=== PATIENT | female | born 1995 | race Hispanic/Latino ===

== ENCOUNTER 2017-09-10 22:39 | Emergency (ER) | payer MEDICAID | END 2017-09-11 01:15 | disposition home or self-care (01) | LOC: EDH 22:39 | DX: I88.8 Other nonspecific lymphadenitis (principal) | CPT/HCPCS: 99281 ==

== ENCOUNTER 2019-12-01 11:37 | Inpatient (IN) | payer MEDICAID ==
[~2019-12-01] VITALS: Ht 160 cm; Wt 81.6 kg
[2019-12-02] MEDS ORDERED: PROMETHAZINE HCL 25 MG/ML 1ML AMPULE IM PRN (22:15)
[2019-12-02] MEDS ORDERED: MEPERIDINE-PF 50 MG/ML SYG IVP PRN (22:15)
[2019-12-02] MEDS ORDERED: LACTATED RINGERS 500 ML 500 ML IV PRN (22:15)
[2019-12-02] MEDS ORDERED: EPHEDRINE SULFATE 50 MG/ML AMPULE IVP PRN (22:15)
[2019-12-02] MEDS ORDERED: NALOXONE HCL 0.4 MG/1 ML ML IV PRN (22:15)
[2019-12-02] MEDS ORDERED: ROPIVACAINE 0.2% 100ML VIAL 100 ML EP PRN (22:15)
[2019-12-02 22:30] VITALS: BP 109/63
[2019-12-02 22:44] LABS: APPEARANCE,URINE Cloudy (CLEAR); BILIRUBIN,URINE Small (NEGATIVE); COLOR,URINE Dark Yellow (YELLOW); GLUCOSE, URINE (UA) Negative (NEGATIVE); KETONES,URINE Trace mg/dL (NEGATIVE); LEUKOCYTE ESTERASE ,URINE Small (NEGATIVE); NITRATE,URINE Negative (NEGATIVE); OCCULT BLOOD,URINE Negative (NEGATIVE); PROTEIN,URINE POS 1+ mg/dL (NEGATIVE)
[2019-12-02 22:52] LABS: MEAN CORPUSCULAR HEMOGLOBIN 22.7 pg (27.0-33.0); PLATELET COUNT (AUTO) 240 K/uL (130-400); RED BLOOD CELL COUNT(AUTO) 3.97 MIL/uL (4.00-5.50); RED CELL DISTRIBUTION WIDTH 16.3 % (11.0-15.5); WHITE BLOOD COUNT (AUTO) 10.5 K/uL (4.8-10.8)
[2019-12-02 23:10] LABS: BACTERIA,URINE Few /HPF (None Seen); MUCUS,URINE Few LPF (None Seen); SQUAMOUS EPITHELIAL CELL,UR Many /HPF (0-2)
[2019-12-02 23:49] LABS: AMPHET/METH SCREEN,URINE NEGATIVE (NEGATIVE); BARBITURATE SCREEN, URINE NEGATIVE (NEGATIVE); BENZODIAZEPINES SCREEN,URINE NEGATIVE (NEGATIVE); CANNABINOID SCREEN,URINE NEGATIVE (NEGATIVE); COCAINE SCREEN,URINE NEGATIVE (NEGATIVE); OPIATE SCREEN,URINE NEGATIVE (NEGATIVE); PHENCYCLIDINE SCREEN,URINE NEGATIVE (NEGATIVE)
[2019-12-03] MEDS: LACTATED RINGERS 1000ML 1,000 ML IV PRN ×2 (00:22→02:32)
[2019-12-03] MEDS ORDERED: OXYTOCIN-LR 20 UNITS/1000 ML 1,000 ML IV ONE ×2 (03:56→09:40)
--- NOTE | 2019-12-03 10:24 | NUR ---
OPEN CPS CASE Sw spoke to Umu Cunningham [phone] CPS casewker. Informed CPS of pt being in labor, child has not been born. Per Umu, if pt and baby are negative UDS at delivery, baby can discharge home with pt. Informed CPS that mom was negative at delivery and that nursery will be informed of need for UDS and Meconium testing needed on baby. SW informed Jami, nursery nurse of above
[2019-12-03] MEDS ORDERED: ACETAMINOPHEN-CODEINE 300/30MG TAB PO PRN (10:45)
[2019-12-03] MEDS ORDERED: DIPH,PERTUSS(ACELL),TET VAC/PF 0.5 ML VIAL IM PRN (10:45)
[2019-12-03] MEDS ORDERED: LANOLIN 30GM OINTMENT TP PRN (10:45)
[2019-12-03] MEDS ORDERED: WITCH HAZEL 1 PAD TP PRN (10:45)
[2019-12-03] MEDS ORDERED: BENZOCAINE/LANOLIN/ALOE VERA 60 ML AEROSOL TP PRN (10:45)
[2019-12-03] MEDS ORDERED: MEASLES/MUMPS/RUBELLA VACCINE, LIVE 0.5 ML/VIAL SQ PRN (10:45)
[2019-12-03] MEDS ORDERED: OXYTOCIN-LR 20 UNITS/1000 ML 1,000 ML IV SCH (10:45)
[2019-12-03 12:26] VITALS: BP 99/61
[2019-12-03] MEDS: IBUPROFEN 600 MG TABLET PO PRN (12:28)
[2019-12-03] MEDS ORDERED: PNV1TABL17 PO (14:42)
[2019-12-03 16:00] VITALS: BP 102/56
[2019-12-03] MEDS: ACETAMINOPHEN 325 MG TAB PO PRN (17:56)
[2019-12-03 19:07] VITALS: BP 117/61
[2019-12-03] MEDS: DOCUSATE SODIUM 100 MG CAP PO SCH (21:17)
[2019-12-03 23:36] VITALS: BP 106/47
[2019-12-04 03:09] VITALS: BP 101/55
[2019-12-04] MEDS: IBUPROFEN 600 MG TABLET PO PRN (04:32)
[2019-12-04 06:58] LABS: HEMATOCRIT 28.1 % (36-48); MEAN CORPUSCULAR HEMOGLOBIN 21.9 pg (27.0-33.0); MEAN CORPUSCULAR HGB CONC 29.2 g/dL (32.0-36.0); MEAN CORPUSCULAR VOLUME 75.1 fL (79-99); RED BLOOD CELL COUNT(AUTO) 3.74 MIL/uL (4.00-5.50); RED CELL DISTRIBUTION WIDTH 16.7 % (11.0-15.5); WHITE BLOOD COUNT (AUTO) 9.8 K/uL (4.8-10.8)
[2019-12-04 07:19] VITALS: BP 106/58
[2019-12-04] MEDS: DOCUSATE SODIUM 100 MG CAP PO SCH (08:06)
[2019-12-04] MEDS: ACETAMINOPHEN 325 MG TAB PO PRN (08:07)
--- NOTE | 2019-12-04 08:46 | NUR ---
CPS f/u Lucas called Umu Cunningham CPS casewker for f/u on CPS visit. Lucas informed Umu that baby and mom should dc after 10:30 today per nursery. Umu to contact cyber crime investigator and see when she was planning to come to hospital.
--- NOTE | 2019-12-04 08:49 | NUR ---
CPS casewker Kat Rendon to see pt and baby before 10am today.
[2019-12-04 10:13] LABS: HEPATITIS Bs ANTIGEN SCREEN P Negative (Negative)
--- NOTE | 2019-12-04 10:15 | NUR ---
MAINE SORIA, CPS WORKER IN TO SEE PATIENT FOR HISTORY OF COCAINE USE.
[2019-12-04 11:02] VITALS: BP 118/78
--- NOTE | 2019-12-04 15:20 | NUR ---
PATIENT WAS TAKEN VIA W/C TO FAMILY VEHICLE AND WAS DISCHARGED TO FAMILY. PATIENT IS STABLE AND DENIES PAIN.
== END 2019-12-04 15:20 | disposition home or self-care (01) | DRG 560 ==
LOC: LDH 12-02 22:00 → WSH 12-03 12:20
PROVIDERS: ADMIT Obstetrics & Gynecology; ATTEND Obstetrics & Gynecology
PROC: 10E0XZZ Delivery of Products of Conception, External Approach (ICD-10-PCS; principal; 2019-12-03)
PROC: 3E033VJ Introduction of Other Hormone into Peripheral Vein, Percutaneous Approach (ICD-10-PCS; 2019-12-03)
PROC: 10907ZC Drainage of Amniotic Fluid, Therapeutic from Products of Conception, Via Natural or Artificial Opening (ICD-10-PCS; 2019-12-03)
PROC: 3E0234Z Introduction of Serum, Toxoid and Vaccine into Muscle, Percutaneous Approach (ICD-10-PCS; 2019-12-03)
PROC: 3E0134Z Introduction of Serum, Toxoid and Vaccine into Subcutaneous Tissue, Percutaneous Approach (ICD-10-PCS; 2019-12-03)
DX: O80 Encounter for full-term uncomplicated delivery (principal); Z37.0 Single live birth; Z3A.39 39 weeks gestation of pregnancy; Z23 Encounter for immunization; Z20.828 Contact with and (suspected) exposure to other viral communicable diseases; D64.9 Anemia, unspecified
CPT/HCPCS: 36415; 80305; 81001; 85027; 86592; 86850; 86900; 86901; 87340; A4351; G0378; J2175; J2550; J2590; J2795; J7120; U0003

== ENCOUNTER 2021-03-20 03:09 | Emergency (ER) | payer MEDICAID ==
[~2021-03-20] VITALS: Ht 170.2 cm; Wt 61.2 kg
[~2021-03-20 03:09] MED LIST: PNV1TABL17 PO
[2021-03-20] MEDS ORDERED: 0.9%NACL 1000ML 1,000 ML IV ONE (04:00)
[2021-03-20] MEDS ORDERED: PROMETHAZINE HCL 25 MG/ML 1ML AMPULE IM ONE ×3 (04:00→05:30)
[2021-03-20 04:02] LABS: BASOPHILS % (AUTO) 0.4 % (0.0-5.0); EOSINOPHILS % (AUTO) 0.3 % (0.0-8.0); HEMATOCRIT 42.6 % (36-48); LYMPHOCYTES % (AUTO) 13.8 % (21.0-51.0); MEAN CORPUSCULAR HEMOGLOBIN 30.4 pg (27.0-33.0); MEAN CORPUSCULAR HGB CONC 35.2 g/dL (32.0-36.0); MEAN CORPUSCULAR VOLUME 86.2 fL (79-99); MONOCYTES % (AUTO) 4.2 % (3.0-13.0); NEUTROPHILS % (AUTO) 80.8 % (40.0-77.0); PLATELET COUNT (AUTO) 211 K/uL (130-400); RED BLOOD CELL COUNT(AUTO) 4.94 MIL/uL (4.00-5.50); RED CELL DISTRIBUTION WIDTH 12.2 % (11.0-15.5); WHITE BLOOD COUNT (AUTO) 10.5 K/uL (4.8-10.8)
[2021-03-20 04:09] LABS: APPEARANCE,URINE Cloudy (CLEAR); BILIRUBIN,URINE Negative (NEGATIVE); COLOR,URINE Yellow (YELLOW); GLUCOSE, URINE (UA) TRACE mg/dL (NEGATIVE); KETONES,URINE 40 mg/dL (NEGATIVE); LEUKOCYTE ESTERASE ,URINE Small (NEGATIVE); NITRATE,URINE Negative (NEGATIVE); OCCULT BLOOD,URINE Negative (NEGATIVE); PH,URINE >=9.0 (5.0-8.0); PROTEIN,URINE POS 2+ mg/dL (NEGATIVE)
[2021-03-20 04:10] LABS: HCG,QUAL RESULT NEGATIVE (NEGATIVE)
[2021-03-20 04:18] LABS: ALBUMIN 4.6 g/dL (3.5-5.0); BILIRUBIN,TOTAL 0.5 mg/dL (0.2-1.0); CREATININE 0.7 mg/dL (0.5-1.5); POTASSIUM 3.2 mmol/L (3.5-5.1); TOTAL PROTEIN, SERUM 7.8 g/dL (6.0-8.3)
[2021-03-20 04:20] LABS: RBC,URINE None Seen /HPF (0-1); WBC,URINE 0-1 /HPF (0-1)
[2021-03-20 04:21] LABS: BACTERIA,URINE Rare /HPF (None Seen); MUCUS,URINE Few LPF (None Seen); SQUAMOUS EPITHELIAL CELL,UR Many /HPF (0-2)
[2021-03-20] MEDS ORDERED: ONDA4TAB4 PO (05:45)
[2021-03-20 06:12] VITALS: BP 120/65
== END 2021-03-20 06:11 | disposition home or self-care (01) ==
LOC: EDH 03:09
DX: R11.2 Nausea with vomiting, unspecified (principal); R10.13 Epigastric pain
CPT/HCPCS: 36415; 80053; 81001; 81025; 83690; 85025; 96360; 96361; 96372 ×2; 99284; J2550 ×2; J7030

== ENCOUNTER 2021-05-19 19:34 | Emergency (ER) | payer MEDICAID ==
[~2021-05-19] VITALS: Ht 167.6 cm; Wt 61.2 kg
[~2021-05-19 19:34] MED LIST changes: +ONDA4TAB4 PO
[2021-05-19 20:11] LABS: BASOPHILS % (AUTO) 0.3 % (0.0-5.0); HEMATOCRIT 43.9 % (36-48); LYMPHOCYTES % (AUTO) 9.5 % (21.0-51.0); MEAN CORPUSCULAR HEMOGLOBIN 30.5 pg (27.0-33.0); MEAN CORPUSCULAR HGB CONC 36.2 g/dL (32.0-36.0); MEAN CORPUSCULAR VOLUME 84.3 fL (79-99); MONOCYTES % (AUTO) 4.3 % (3.0-13.0); NEUTROPHILS % (AUTO) 85.5 % (40.0-77.0); PLATELET COUNT (AUTO) 277 K/uL (130-400); RED BLOOD CELL COUNT(AUTO) 5.21 MIL/uL (4.00-5.50); RED CELL DISTRIBUTION WIDTH 11.7 % (11.0-15.5); WHITE BLOOD COUNT (AUTO) 12.7 K/uL (4.8-10.8)
[2021-05-19 20:21] LABS: APPEARANCE,URINE Cloudy (CLEAR); BILIRUBIN,URINE Negative (NEGATIVE); COLOR,URINE Yellow (YELLOW); GLUCOSE, URINE (UA) Negative (NEGATIVE); HCG,QUAL RESULT POSITIVE (NEGATIVE); KETONES,URINE >=160 mg/dL (NEGATIVE); LEUKOCYTE ESTERASE ,URINE Small (NEGATIVE); NITRATE,URINE Negative (NEGATIVE); OCCULT BLOOD,URINE Negative (NEGATIVE); PROTEIN,URINE POS 1+ mg/dL (NEGATIVE)
[2021-05-19 20:24] LABS: CREATININE 0.8 mg/dL (0.5-1.5); POTASSIUM 3.3 mmol/L (3.5-5.1)
[2021-05-19 20:28] LABS: ALBUMIN 4.8 g/dL (3.5-5.0); BILIRUBIN,TOTAL 1.1 mg/dL (0.2-1.0); TOTAL PROTEIN, SERUM 8.7 g/dL (6.0-8.3)
[2021-05-19] MEDS ORDERED: LIDOCAINE HCL 2% VISCOUS 15 ML UDCUP PO ONE (20:30)
[2021-05-19] MEDS ORDERED: PANTOPRAZOLE 40 MG/VIAL IVP ONE (20:30)
[2021-05-19] MEDS ORDERED: ONDANSETRON 4MG INJ IVP ONE (20:30)
[2021-05-19] MEDS ORDERED: 0.9%NACL 1000ML 1,000 ML IV ONE (20:30)
[2021-05-19] MEDS ORDERED: ACETAMINOPHEN 325 MG TAB PO ONE (20:30)
[2021-05-19 20:35] LABS: BACTERIA,URINE Few /HPF (None Seen); MUCUS,URINE Many LPF (None Seen); RBC,URINE None Seen /HPF (0-1)
[2021-05-19 20:46] LABS: AMPHET/METH SCREEN,URINE NEGATIVE (NEGATIVE); BARBITURATE SCREEN, URINE NEGATIVE (NEGATIVE); BENZODIAZEPINES SCREEN,URINE NEGATIVE (NEGATIVE); CANNABINOID SCREEN,URINE POSITIVE (NEGATIVE); COCAINE SCREEN,URINE POSITIVE (NEGATIVE); OPIATE SCREEN,URINE NEGATIVE (NEGATIVE); PHENCYCLIDINE SCREEN,URINE NEGATIVE (NEGATIVE)
[2021-05-19] MEDS ORDERED: MORPHINE 4 MG SYG IV ONE (21:00)
[2021-05-19] MEDS ORDERED: METOCLOPRAMIDE 10 MG/2 ML VIAL IVP ONE (21:00)
[2021-05-19 21:54] VITALS: BP 128/78
[2021-05-19] MEDS ORDERED: METO5 PO (22:10)
[2021-05-19] MEDS ORDERED: ACET-66 PO (22:10)
[2021-05-19] MEDS ORDERED: CEPH500C2 PO (22:10)
== END 2021-05-19 22:20 | disposition home or self-care (01) ==
LOC: EDH 19:34
DX: O23.41 Unspecified infection of urinary tract in pregnancy, first trimester (principal); O21.1 Hyperemesis gravidarum with metabolic disturbance; F12.10 Cannabis abuse, uncomplicated; Z3A.01 Less than 8 weeks gestation of pregnancy
CPT/HCPCS: 36415; 76705; 76801; 80053; 80305; 81001; 81025; 83690; 84702; 85025; 86900; 86901; 96361; 96374; 96375; 99284; J2270; J2405; J2765; J7030

== ENCOUNTER 2021-07-07 16:45 | Emergency (ER) | payer MEDICAID ==
[~2021-07-07] VITALS: Ht 167.6 cm; Wt 61.2 kg
[~2021-07-07 16:45] MED LIST changes: +ACET-66 PO; +CEPH500C2 PO; +METO5 PO
[2021-07-07 17:25] LABS: APPEARANCE,URINE CLOUDY (CLEAR); BILIRUBIN,URINE NEGATIVE (NEGATIVE); COLOR,URINE YELLOW (YELLOW); GLUCOSE, URINE (UA) NEGATIVE (NEGATIVE); KETONES,URINE NEGATIVE (NEGATIVE); LEUKOCYTE ESTERASE ,URINE MODERATE (NEGATIVE); NITRATE,URINE NEGATIVE (NEGATIVE); OCCULT BLOOD,URINE LARGE (NEGATIVE); PROTEIN,URINE TRACE mg/dL (NEGATIVE)
[2021-07-07 17:29] LABS: HCG,QUAL RESULT POSITIVE (NEGATIVE)
[2021-07-07 17:35] LABS: BASOPHILS % (AUTO) 0.3 % (0.0-5.0); EOSINOPHILS % (AUTO) 0.8 % (0.0-8.0); HEMATOCRIT 29.5 % (36-48); LYMPHOCYTES % (AUTO) 8.8 % (21.0-51.0); MEAN CORPUSCULAR HEMOGLOBIN 30.6 pg (27.0-33.0); MEAN CORPUSCULAR HGB CONC 34.2 g/dL (32.0-36.0); MEAN CORPUSCULAR VOLUME 89.4 fL (79-99); MONOCYTES % (AUTO) 7.4 % (3.0-13.0); NEUTROPHILS % (AUTO) 81.5 % (40.0-77.0); PLATELET COUNT (AUTO) 210 K/uL (130-400); RED CELL DISTRIBUTION WIDTH 11.7 % (11.0-15.5); WHITE BLOOD COUNT (AUTO) 16.1 K/uL (4.8-10.8)
[2021-07-07 17:43] LABS: CREATININE 0.5 mg/dL (0.5-1.5); POTASSIUM 3.1 mmol/L (3.5-5.1)
[2021-07-07 17:53] LABS: WBC,URINE 26-50 /HPF (0-1)
[2021-07-07 17:54] LABS: BACTERIA,URINE Few /HPF (None Seen); MUCUS,URINE Few LPF (None Seen); SQUAMOUS EPITHELIAL CELL,UR Moderate /HPF (0-2)
[2021-07-07] MEDS ORDERED: 0.9%NACL 1000ML 1,000 ML IV ONE (18:00)
[2021-07-07] MEDS ORDERED: ACETAMINOPHEN 500 MG TABLET PO ONE (18:00)
[2021-07-07] MEDS ORDERED: ONDANSETRON 4MG INJ IVP ONE (18:00)
[2021-07-07 18:13] LABS: ALBUMIN 2.7 g/dL (3.5-5.0); BILIRUBIN,TOTAL 0.2 mg/dL (0.2-1.0); TOTAL PROTEIN, SERUM 6.4 g/dL (6.0-8.3)
[2021-07-07] MEDS ORDERED: CEFTRIAXONE 1G VIAL IV ONE (19:00)
[2021-07-07] MEDS ORDERED: POTASSIUM BICARB/CIT AC 25 MEQ TABLET.EFF PO ONE (19:00)
[2021-07-07 19:37] VITALS: BP 110/74
[2021-07-07] MEDS ORDERED: CEPH500B PO (19:43)
[2021-07-07] MEDS ORDERED: ONDA4TAB10 PO (19:43)
[2021-07-07] MEDS ORDERED: ACET-66 PO (19:43)
== END 2021-07-07 20:17 | disposition home or self-care (01) ==
LOC: EDH 16:45
DX: O20.0 Threatened abortion (principal); O23.41 Unspecified infection of urinary tract in pregnancy, first trimester; Z20.822 Contact with and (suspected) exposure to COVID-19; Z3A.08 8 weeks gestation of pregnancy
CPT/HCPCS: 36415; 76801; 80053; 81001; 81025; 84702; 85025; 86900; 86901; 87040 ×2; 87088; 87635; 87804 ×2; 96374; 96375; 99284; C9803; J0696; J2405

== ENCOUNTER 2021-08-18 02:40 | Emergency (ER) | payer MEDICAID ==
[~2021-08-18] VITALS: Ht 177.8 cm; Wt 59.0 kg
[~2021-08-18 02:40] MED LIST changes: +CEPH500B PO; +ONDA4TAB10 PO
[2021-08-18 03:42] LABS: BASOPHILS % (AUTO) 0.6 % (0.0-5.0); EOSINOPHILS % (AUTO) 1.5 % (0.0-8.0); HEMATOCRIT 29.7 % (36-48); LYMPHOCYTES % (AUTO) 12.2 % (21.0-51.0); MEAN CORPUSCULAR HEMOGLOBIN 25.2 pg (27.0-33.0); MEAN CORPUSCULAR HGB CONC 31.3 g/dL (32.0-36.0); MEAN CORPUSCULAR VOLUME 80.5 fL (79-99); MONOCYTES % (AUTO) 5.3 % (3.0-13.0); PLATELET COUNT (AUTO) 317 K/uL (130-400); RED BLOOD CELL COUNT(AUTO) 3.69 MIL/uL (4.00-5.50); RED CELL DISTRIBUTION WIDTH 14.7 % (11.0-15.5); WHITE BLOOD COUNT (AUTO) 13.2 K/uL (4.8-10.8)
[2021-08-18 03:57] LABS: CREATININE 0.6 mg/dL (0.5-1.5); POTASSIUM 3.5 mmol/L (3.5-5.1)
[2021-08-18 04:08] LABS: ALBUMIN 3.6 g/dL (3.5-5.0); BILIRUBIN,TOTAL 0.5 mg/dL (0.2-1.0); TOTAL PROTEIN, SERUM 7.5 g/dL (6.0-8.3)
[2021-08-18] MEDS ORDERED: KETOROLAC 30MG VIAL (30MG/ML) IV ONE (05:00)
[2021-08-18] MEDS ORDERED: DICY20TA2 PO (06:06)
[2021-08-18] MEDS ORDERED: MELO7.5T12 PO (06:06)
[2021-08-18] MEDS ORDERED: ONDA4TAB10 PO (06:06)
[2021-08-18] MEDS ORDERED: CYCL-309 PO (06:06)
[2021-08-18 06:31] VITALS: BP 110/72
== END 2021-08-18 06:34 | disposition home or self-care (01) ==
LOC: EDH 02:40
DX: O03.9 Complete or unspecified spontaneous abortion without complication (principal); R10.2 Pelvic and perineal pain; Z79.899 Other long term (current) drug therapy
CPT/HCPCS: 36415; 76801; 80053; 84702; 85025; 86900; 86901; 96374; 99284; J1885

== ENCOUNTER 2022-03-23 14:33 | Emergency (ER) | payer MEDICAID ==
[~2022-03-23] VITALS: Ht 167.6 cm; Wt 63.5 kg
[~2022-03-23 14:33] MED LIST changes: +CYCL-309 PO; +DICY20TA2 PO; +MELO7.5T12 PO
[2022-03-23 14:38] VITALS: BP 126/67
[2022-03-23 15:14] LABS: APPEARANCE,URINE CLEAR (CLEAR); BILIRUBIN,URINE NEGATIVE (NEGATIVE); COLOR,URINE YELLOW (YELLOW); GLUCOSE, URINE (UA) NEGATIVE (NEGATIVE); KETONES,URINE NEGATIVE (NEGATIVE); LEUKOCYTE ESTERASE ,URINE NEGATIVE Leu/uL (NEGATIVE); NITRATE,URINE NEGATIVE (NEGATIVE); OCCULT BLOOD,URINE NEGATIVE (NEGATIVE); PROTEIN,URINE 20 mg/dL (NEGATIVE)
[2022-03-23 15:15] LABS: HCG,QUALITATIVE URINE POSITIVE (NEGATIVE)
[2022-03-23 15:21] LABS: AMPHET/METH SCREEN,URINE NEGATIVE (NEGATIVE); BARBITURATE SCREEN, URINE NEGATIVE (NEGATIVE); BENZODIAZEPINES SCREEN,URINE NEGATIVE (NEGATIVE); CANNABINOID SCREEN,URINE POSITIVE (NEGATIVE); COCAINE SCREEN,URINE POSITIVE (NEGATIVE); OPIATE SCREEN,URINE NEGATIVE (NEGATIVE); PHENCYCLIDINE SCREEN,URINE NEGATIVE (NEGATIVE)
[2022-03-23 15:27] LABS: BACTERIA,URINE FEW /HPF (None Seen); MUCUS,URINE MOD LPF (None Seen); SQUAMOUS EPITHELIAL CELL,UR MOD /HPF (0-2); WBC,URINE 0-1 /HPF (0-1)
== END 2022-03-23 15:52 | disposition home or self-care (01) ==
LOC: EDH 14:33
DX: O9A.519 Psychological abuse complicating pregnancy, unspecified trimester (principal); F19.10 Other psychoactive substance abuse, uncomplicated; Z3A.00 Weeks of gestation of pregnancy not specified
CPT/HCPCS: 36415; 80305; 81001; 81025